=== PATIENT | male | born 1950 | race African-American/Black ===

== ENCOUNTER 2016-07-05 05:57 | Emergency (ER) | payer MEDICARE ==
[2014-06-07 11:15] VITALS: BMI 32.3
[~2016-07-05 05:57] MED LIST: HYDROCODON-ACE1 EAC9 PO; LASIX20 MG PO; LEVAQUIN750 MG PO; NORVASC10 MG PO
[2016-07-05 06:34] LABS: BASOPHILS 0.2 % (0.0-2.0); EOSINOPHILS 3.5 % (0-7); HEMATOCRIT 36.3 % (42.0-54.0); HEMOGLOBIN 12.2 g/dL (13.5-17.5); LYMPHOCYTES 47.6 % (15-50); MCH 31.3 pg (26.0-34.0); MCHC 33.6 g/dL (31.0-37.0); MCV 93.1 fL (80.0-100.0); MEAN PLATELET VOLUME 9.8 fL (7.4-10.4); MONOCYTES 11.4 % (2-11); NEUTROPHILS 37.3 % (40-80); PLATELET COUNT 176 10x3/uL (130-400); RDW 14.3 % (11.5-14.5); WBC 5.8 10x3/uL (4.8-10.8)
[2016-07-05 06:48] LABS: APPEARANCE CLEAR (CLEAR); BILIRUBIN NEGATIVE (NEGATIVE); COLOR YELLOW (YELLOW); GLUCOSE NEGATIVE (NEGATIVE); KETONE NEGATIVE (NEGATIVE); LEUKOCYTE ESTERASE NEGATIVE (NEGATIVE); NITRITE NEGATIVE (NEGATIVE); PROTEIN NEGATIVE (NEGATIVE); UROBILINOGEN NORMAL (NORMAL)
[2016-07-05 07:01] LABS: ALBUMIN 3.7 g/dL (3.4-5.0); ANION GAP 11.2 mmol/L (8-16); BILIRUBIN - TOTAL 0.78 mg/dL (0.2-1.3); CALCIUM 9.1 mg/dL (8.5-10.1); CREATININE - SERUM 1.3 mg/dL (0.6-1.3); POTASSIUM - SERUM 4.2 mmol/L (3.5-5.1); PROTEIN - SERUM 7.6 g/dL (6.4-8.2)
== END 2016-07-05 09:02 | disposition home or self-care (01) ==
LOC: D.ER 05:57
PROVIDERS: Emergency Medicine
DX: R10.11 Right upper quadrant pain (principal); I10 Essential (primary) hypertension; M54.16 Radiculopathy, lumbar region

== ENCOUNTER → 2017-01-08 05:36 | Outpatient (CLI) | payer MEDICARE ==
[~2017-01-08] VITALS: Ht 185.4 cm; Wt 128.2 kg
[2017-01-08 06:21] VITALS: BP 164/97; Ht 185.4 cm; Wt 128.2 kg
[2017-01-08 06:34] LABS: ANION GAP 9.6 mmol/L (8-16); CALCIUM 9.2 mg/dL (8.5-10.1); CARBON DIOXIDE 30.4 mmol/L (21.0-32.0); CREATININE - SERUM 1.1 mg/dL (0.6-1.3)
[2017-01-08 06:44] LABS: APTT 29.3 SECONDS (22.8-39.4); INR 0.97 (0.85-1.17); PROTIME 12.7 SECONDS (11.6-15.0)
[2017-01-08 07:03] LABS: BASOPHILS 0.4 % (0-2); EOSINOPHILS 3.8 % (0-7); HEMATOCRIT 38.2 % (42.0-54.0); IMMATURE GRANULOCYTES 0.2 % (0-5); LYMPHOCYTES 56.3 % (15-50); MCH 31.8 pg (26.0-34.0); MCV 93.4 fL (80.0-100.0); MONOCYTES 7.8 % (2-11); NEUTROPHILS 31.5 % (40-80); PLATELET COUNT 170 10x3/uL (130-400); RBC 4.09 10x6/uL (4.20-6.10); RDW 14.1 % (11.5-14.5); WBC 4.8 10x3/uL (4.8-10.8)
== END | disposition home or self-care (01) ==
LOC: D.OPS 05:36 → D.RAD 08:00
PROVIDERS: Specialist
DX: M25.552 Pain in left hip (principal); Z01.812 Encounter for preprocedural laboratory examination

== ENCOUNTER 2017-01-13 10:07 | Emergency (ER) | payer MEDICARE ==
[2017-01-08 06:21] VITALS: BMI 37.2
== END 2017-01-13 13:17 | disposition home or self-care (01) ==
LOC: D.ER 10:07
DX: M54.16 Radiculopathy, lumbar region (principal)

== ENCOUNTER → 2020-09-26 00:18 | Outpatient (CLI) | payer MEDICARE ==
[2020-06-29 17:05] VITALS: BMI 38.3
[2020-09-26 00:47] LABS: BILIRUBIN NEGATIVE (NEGATIVE); KETONE NEGATIVE (NEGATIVE); NITRITE NEGATIVE (NEGATIVE); UROBILINOGEN NORMAL mg/dL (< 2)
[2020-09-26 00:49] LABS: BACTERIA MANY HPF (NONE SEEN); SQUAMOUS EPITHELIAL 0-5 HPF (0-4)
== END | disposition home or self-care (01) ==
LOC: D.LABREF 00:18
PROVIDERS: ATTEND Family Medicine
DX: N13.2 Hydronephrosis with renal and ureteral calculous obstruction (principal); I10 Essential (primary) hypertension